=== PATIENT | male | born 1970 | race Caucasian/White ===

== ENCOUNTER → 2020-12-24 | Day surgery (SDC) | payer OTHER ==
[~2020-12-24] MED LIST: BACTRIM DS TAB1 EACH PO; KEFLEX250 MG PO; NORCO 5-325 TA1 EACH PO; PERCOCET 5-3251 EACH PO; XARELTO10 MG PO; ZYRTEC10 MG PO
[2020-12-24 07:10] LABS: HCT 40.9 % (42.0-52.0); HGB 14.1 g/dl (13.2-18.0); MCH 31.5 pg (25.0-31.0); MCHC 34.5 g/dL (32.0-36.0); MCV 91.5 fL (78.0-100.0); MPV 9.3 fL (6.0-9.5); RBC 4.47 M/uL (4.70-6.00); RDW 12.4 % (11.5-14.0); WBC 4.3 K/uL (4.0-10.5)
[2020-12-24 07:30] LABS: ALBUMIN 3.6 g/dL (3.4-5.0); BILIRUBIN - TOTAL 0.5 mg/dL (0.2-1.0); BUN/CREAT RATIO (CALC) 15.1 RATIO; CREATININE 0.73 mg/dL (0.67-1.17); GLOBULIN (CALCULATION) 3.4 g/dL; POTASSIUM 3.8 mmol/L (3.5-5.1)
== END | disposition home or self-care (01) ==
LOC: FAS 06:30
PROVIDERS: Orthopaedic Surgery
DX: S76.111A Strain of right quadriceps muscle, fascia and tendon, initial encounter (principal); Z20.822 Contact with and (suspected) exposure to COVID-19; Z88.6 Allergy status to analgesic agent; Z79.899 Other long term (current) drug therapy; X50.1XXA Overexertion from prolonged static or awkward postures, initial encounter
CPT/HCPCS: 36415; 80053; J0690; J1100; J1170; J1885; J2250; J2405; J2704; J2795; J3010; J7120; U0002